=== PATIENT | female | born 1945 | race Caucasian/White ===

== ENCOUNTER 2017-08-28 11:24 | Emergency (ER) | payer MEDICARE, OTHER ==
[2015-05-04 11:38] VITALS: Ht 16.5 cm; Wt 81.3 kg
[~2017-08-28] VITALS: Ht 16.5 cm; Wt 81.3 kg
[~2017-08-28 11:24] MED LIST: ACET-2007 PO; ASPI-757 PO; CALC-1198 PO; CELE-1 PO; CIPR-345 PO; CYCL10TA PO; GLUC-158 PO; HYDR-2952 PO; LEV500 GT; MELO-205 PO; MULT1TAB54 PO; NAPROSYN PO; NIASPAN; OXYC-717 PO; SIMVASTATIN PO
--- NOTE | 2017-08-28 11:26 | ER Report ---
History and Physical Time Seen By MD: 11:25 HPI/ROS CHIEF COMPLAINT: High blood pressure, low pulse HISTORY OF PRESENT ILLNESS: Patient is a 71-year-old female who presents to the emergency department after having to be found hypertensive at her chiropractor to office today and she notes that she's been having right-sided scapular pain that has been undergoing manipulations. During the visit today her blood pressure was taken and was reported to be approximately 100 systolic over 100 diastolic with a pulse rate of around 45. The patient was symptom-free at this time but was referred to the emergency department for further evaluation. Patient remained symptom-free she does admit to having influenza A and recently being treated with Tamiflu approximately 2 weeks ago. For the past 2 weeks her activity level has decreased secondary to the flu she further is on a weight loss program and has lost approximately 40 pounds in 4 months which was intentional. She denies any chest pain or shortness of breath she denies palpitations. She denies nausea vomiting or diarrhea. She denies abdominal pain. REVIEW OF SYSTEMS: Constitutional: No fever, no chills. Eyes: No discharge. ENT: No sore throat. Cardiovascular: No chest pain, no palpitations. Respiratory: No cough, no shortness of breath. Gastrointestinal: No abdominal pain, no vomiting. Genitourinary: No hematuria. Musculoskeletal: No back pain. Right scapular pain Skin: No rashes. Neurological: No headache. Allergies: Coded Allergies: No Known Drug Allergies (Verified , 08/28/17) Home Meds Active Scripts Aspirin (ASPIRIN) 325 Mg Tab, 325 MG PO QDAY, #14 After two weeks of 325mg a day, take a baby aspirin (81mg) a day. Prov:DNAN BUNN MD 05/10/15 Reported Medications Atorvastatin Calcium (LIPITOR) 20 Mg Tablet, 1 TAB PO QDAY, TAB 08/28/17 Discontinued Reported Medications Calcium Carbonate/Vitamin D3 (CALCARB 600 W-VITAMIN D TAB) 1 Each Tablet, PO 05/03/15 Multivitamin (MULTI-VITAMIN DAILY) 1 Each Tablet, 1 EACH PO DAILY 05/03/15 [Simvastatin] No Conflict Check, 20 MG PO HS 11/03/11 Discontinued Scripts Acetaminophen (MAPAP) 325 Mg Tab, 650 MG PO Q6H Y for PAIN, #0 Prov:DANN BUNN MD 9/28/15 Past Medical/Surgical History Past medical history for hypercholesterolemia, past surgical history for knee replacement cystocele in the lumbar laminectomies. Hx Smoking: No Smoking Status: Never Smoker Exposure to Second Hand Smoke?: Yes Hx Alcohol Use: Yes Constitutional Vital Sign - Last 24 Hours 08/28/17 08/28/17 08/28/17 08/28/17 11:24 11:28 11:30 11:34 Temp 98.4 Pulse ??? 56 Resp 20 B/P (MAP) 186/103 (130) 186/103 168/104 (125) Pulse Ox 96 O2 Delivery Room Air 08/28/17 08/28/17 08/28/17 08/28/17 11:39 11:45 11:54 11:59 Pulse 57 58 Resp 22 20 B/P (MAP) 167/86 (113) 180/92 (121) Pulse Ox 95 08/28/17 08/28/17 08/28/17 08/28/17 12:02 12:02 12:09 12:15 Pulse 63 Resp 12 B/P (MAP) 164/90 (114) 180/92 (121) 163/84 (110) Pulse Ox 93 O2 Delivery Room Air 08/28/17 12:30 B/P (MAP) 161/85 (110) Physical Exam General/Constitutional: Patient is awake, alert, nontoxic and in no acute respiratory distress. Head: Normocephalic and atraumatic. Eyes: Conjunctival clear, Pupils are equal and reactive to light. Sclera are clear and anicteric. Ears:External canals are clear. Tympanic membranes are clear with normal landmarks and light reflex. Nares: No rhinorrhea or bleeding. Turbinates are pink and moist. Oropharyngeal: Mucous membranes are moist. There is no pharyngeal erythema or exudate. Neck: Supple, no adenopathy. Cardiovascular: Heart is regular rate and rhythm with occasional ectopy patient also has 2/6 systolic ejection murmur greatest at the aortic site peripheral pulses to the carotids to the dorsalis pedis and the radial are symmetrical and equal Pulmonary: Lungs are clear to auscultation bilaterally. There are no wheezes, rales, or rhonchi. Chest rise is symmetrical Abdomen: Soft, nontender, no guarding or peritoneal signs. Extremities: No gross deformities, No peripheral cyanosis. Able to move all 4 extremities. Neuro: Alert and oriented X3, . Patient has normal gait. Skin: No rashes, skin is warm dry and well perfused. Medical Decision Making Data Points Result Diagram: 08/28/17 1155 08/28/17 1155 Laboratory Hematology Test 08/28/17 11:55 08/28/17 13:00 Red Blood Count 4.74 M/uL (4.17-5.56) Mean Corpuscular Volume 92.7 fL (80.0-96.0) Mean Corpuscular Hemoglobin 31.4 pg (26.0-33.0) Mean Corpuscular Hemoglobin Concent 33.9 g/dL (32.0-36.0) Red Cell Distribution Width 13.9 % (11.5-14.5) Mean Platelet Volume 10.3 fL (7.2-11.1) Neutrophils (%) (Auto) % (39.4-72.5) Lymphocytes (%) (Auto) % (17.6-49.6) Monocytes (%) (Auto) % (4.1-12.4) Eosinophils (%) (Auto) % (0.4-6.7) Basophils (%) (Auto) % (0.3-1.4) Nucleated RBC Relative Count (auto) /100WBC Neutrophils # (Auto) K/uL (2.0-7.4) Lymphocytes # (Auto) K/uL (1.3-3.6) Monocytes # (Auto) K/uL (0.3-1.0) Eosinophils # (Auto) K/uL (0.0-0.5) Basophils # (Auto) K/uL (0.0-0.1) Nucleated RBC Absolute Count (auto) K/uL Neutrophils % (Manual) 78 % (39.4-72.5) Lymphocytes % (Manual) 17 % (17.6-49.6) Monocytes % (Manual) 1 % (4.1-12.4) Eosinophils % (Manual) 0 % (0.4-6.7) Basophils % (Manual) 2 % (0.3-1.4) Metamyelocytes % 2 % Peripheral Blood Smear Yes Y/N Sodium Level 141 mmol/L (137-145) Potassium Level 3.8 mmol/L (3.5-5.0) Chloride Level 103 mmol/L (98-107) Carbon Dioxide Level 26 mmol/L (22-31) Blood Urea Nitrogen 17 mg/dl (7-18) Creatinine 0.70 mg/dl (0.52-1.04) Glomerular Filtration Rate Calc > 60.0 Random Glucose 140 mg/dl (75-110) Calcium Level 9.1 mg/dl (8.4-10.2) Total Bilirubin 0.6 mg/dl (0.2-1.3) Aspartate Amino Transf (AST/SGOT) 32 U/L (0-35) Alanine Aminotransferase (ALT/SGPT) 33 U/L (0-56) Alkaline Phosphatase 88 U/L (0-126) Troponin I < 0.012 ng/ml Total Protein 7.2 gm/dl (6.3-8.2) Albumin 3.9 g/dl (3.5-5.0) Urine Color Straw Urine Clarity Clear Urine pH 6.0 pH (4.8-9.5) Urine Specific [place] 1.023 Urine Protein Negative mg/dL (NEGATIVE) Urine Glucose (UA) Negative mg/dL (NEGATIVE) Urine Ketones Negative mg/dL (NEGATIVE) Urine Blood Negative (NEGATIVE) Urine Nitrite Negative (NEGATIVE) Urine Bilirubin Negative (NEGATIVE) Urine Urobilinogen Negative mg/dL (0.2-1.9) Urine Leukocyte Esterase Small (NEGATIVE) Urine RBC None /HPF (0-2/HPF) Urine WBC 3 /HPF (0-5/HPF) Urine Squamous Epithelial Cells Many /LPF (</=FEW) Urine Bacteria Negative /HPF (NONE-FEW) Urine Mucus None /HPF (NONE-FEW) Chemistry Test 08/28/17 11:55 08/28/17 13:00 White Blood Count 6.8 k/uL (4.5-11.0) Red Blood Count 4.74 M/uL (4.17-5.56) Hemoglobin 14.9 g/dL (12.0-16.0) Hematocrit 43.9 % (34.0-47.0) Mean Corpuscular Volume 92.7 fL (80.0-96.0) Mean Corpuscular Hemoglobin 31.4 pg (26.0-33.0) Mean Corpuscular Hemoglobin Concent 33.9 g/dL (32.0-36.0) Red Cell Distribution Width 13.9 % (11.5-14.5) Platelet Count 182 K/uL (150-450) Mean Platelet Volume 10.3 fL (7.2-11.1) Neutrophils (%) (Auto) % (39.4-72.5) Lymphocytes (%) (Auto) % (17.6-49.6) Monocytes (%) (Auto) % (4.1-12.4) Eosinophils (%) (Auto) % (0.4-6.7) Basophils (%) (Auto) % (0.3-1.4) Nucleated RBC Relative Count (auto) /100WBC Neutrophils # (Auto) K/uL (2.0-7.4) Lymphocytes # (Auto) K/uL (1.3-3.6) Monocytes # (Auto) K/uL (0.3-1.0) Eosinophils # (Auto) K/uL (0.0-0.5) Basophils # (Auto) K/uL (0.0-0.1) Nucleated RBC Absolute Count (auto) K/uL Neutrophils % (Manual) 78 % (39.4-72.5) Lymphocytes % (Manual) 17 % (17.6-49.6) Monocytes % (Manual) 1 % (4.1-12.4) Eosinophils % (Manual) 0 % (0.4-6.7) Basophils % (Manual) 2 % (0.3-1.4) Metamyelocytes % 2 % Peripheral Blood Smear Yes Y/N Glomerular Filtration Rate Calc > 60.0 Calcium Level 9.1 mg/dl (8.4-10.2) Total Bilirubin 0.6 mg/dl (0.2-1.3) Aspartate Amino Transf (AST/SGOT) 32 U/L (0-35) Alanine Aminotransferase (ALT/SGPT) 33 U/L (0-56) Alkaline Phosphatase 88 U/L (0-126) Troponin I < 0.012 ng/ml Total Protein 7.2 gm/dl (6.3-8.2) Albumin 3.9 g/dl (3.5-5.0) Urine Color Straw Urine Clarity Clear Urine pH 6.0 pH (4.8-9.5) Urine Specific [place] 1.023 Urine Protein Negative mg/dL (NEGATIVE) Urine Glucose (UA) Negative mg/dL (NEGATIVE) Urine Ketones Negative mg/dL (NEGATIVE) Urine Blood Negative (NEGATIVE) Urine Nitrite Negative (NEGATIVE) Urine Bilirubin Negative (NEGATIVE) Urine Urobilinogen Negative mg/dL (0.2-1.9) Urine Leukocyte Esterase Small (NEGATIVE) Urine RBC None /HPF (0-2/HPF) Urine WBC 3 /HPF (0-5/HPF) Urine Squamous Epithelial Cells Many /LPF (</=FEW) Urine Bacteria Negative /HPF (NONE-FEW) Urine Mucus None /HPF (NONE-FEW) Urinalysis Test 08/28/17 13:00 Urine Color Straw Urine Clarity Clear Urine pH 6.0 pH (4.8-9.5) Urine Specific [place] 1.023 Urine Protein Negative mg/dL (NEGATIVE) Urine Glucose (UA) Negative mg/dL (NEGATIVE) Urine Ketones Negative mg/dL (NEGATIVE) Urine Blood Negative (NEGATIVE) Urine Nitrite Negative (NEGATIVE) Urine Bilirubin Negative (NEGATIVE) Urine Urobilinogen Negative mg/dL (0.2-1.9) Urine Leukocyte Esterase Small (NEGATIVE) Urine RBC None /HPF (0-2/HPF) Urine WBC 3 /HPF (0-5/HPF) Urine Squamous Epithelial Cells Many /LPF (</=FEW) Urine Bacteria Negative /HPF (NONE-FEW) Urine Mucus None /HPF (NONE-FEW) EKG/Imaging EKG Interpretation EKG shows normal sinus rhythm with occasional couplets of bidirectional PVCs otherwise no significant ST segment changes or abnormalities. Monitor Interpretation: NSR with PVCs Imaging FACILITY: [facility] PATIENT NAME: Blanca Diamond : 1945 MR: [id number] V: [id number] EXAM DATE: ORDERING PHYSICIAN: EDER VINSON TECHNOLOGIST: Location: [facility] [place]: Blanca Diamond : 1945 Visit/Account:[id number] Date of Sevice: 08/28/2017 CTA CHEST ABD W WO CONT HISTORY: Hypertension ADDITIONAL HISTORY: None. TECHNIQUE: CTA chest, abdomen without and with contrast. 3D coronal slab MIPs and 2D reconstructions in the coronal and sagittal planes were also created. One of the following dose optimization techniques was utilized in the performance of this exam: automated exposure control; adjustment of the mA and/ or kv according to patient size; or use of iterative reconstruction technique. Specific details can be referenced in the facility's radiology CT exam operational policy. CONTRAST: 100 cc of Isovue-370 COMPARISON: Chest x-ray 08/28/2017. CT angiogram of the chest 05/01/2015 FINDINGS: Vessels: Thoracic aorta measures 3.7 cm maximally. No evidence of dissection. No evidence of intramural hematoma on precontrast images. Mild calcification of the descending thoracic aorta and aortic root. Visualized abdominal aorta normal caliber. Aortic arch vessels have a normal branching pattern without stenosis. Mesenteric arteries are widely patent. Main bilateral renal arteries widely patent. Visualized bilateral iliofemoral arterial systems are widely patent. Chest: Lower neck: Negative. Heart/pericardium: Negative. Mediastinum/hilum/lymph nodes: Negative. Lungs/pleura: Negative. Bones/soft tissues: Moderate degenerative changes within the lumbar spine. Mild levoscoliosis of the lumbar spine. Other findings: None significant Abdomen and Pelvis: Hepatobiliary: Negative. Spleen: Negative. Adrenals: Negative. Pancreas: Negative. Kidneys/ureters/bladder: Negative. Bowel/peritoneum/mesentery: Negative. Lymph nodes: Negative. Bones/body wall: Negative. Other findings: None significant IMPRESSION: 1. Mild aortic atherosclerosis without aneurysm or dissection. 2. No other acute process identified within the chest and abdomen. Report Dictated By: Chalo Lopez MD at 08/28/2017 1:09 PM Report E-Signed By: Chalo Lopez MD at 08/28/2017 1:16 PM [id number] ED Course/Re-evaluation ED Course 08/28/2017 12:05:59 pm patient found to have a manual blood pressure in the right arm of 164/90 and a manual blood pressure of 180/90 in the left arm. This coupled with the patient's history of 2 weeks of retrosternal or scapular pain raises the suspicion for either aortic valvular insufficiency or aortic dissection. Plan at this time will be a CTA angiogram looking for aortic dissection or dilation of the aortic root. This was explained to the patient questions or concerns at this time. Decision to Disposition Date: Aug 28, 2017 Decision to Disposition Time: 13:28 Depart Departure Latest Vital Signs Vital Signs Date Time Temp Pulse Resp B/P (MAP) Pulse Ox O2 Delivery O2 Flow Rate FiO2 08/28/17 12:30 161/85 (110) 08/28/17 12:09 63 12 93 Room Air 08/28/17 11:30 98.4 Impression: Primary Impression: Hypertension Condition: Improved Disposition: HOME OR SELF-CARE Referrals: RIVAS CULVER DO (PCP) 1 Week For repeat check of blood pressure. Departure Forms: ER Transition Record, Medications Reconciliation, Patient Portal Information Patient Instructions: Hypertension (ED) Additional Instructions: Continue all your outpatient medications as prescribed. Scheduling follow-up appointment with Dr. Culver for repeat check of blood pressure. Problem Qualifiers Primary Impression: Hypertension Hypertension type: essential hypertension Qualified Codes: I10 - Essential ( primary) hypertension EDER VINSON MD Aug 28, 2017 11:26
[2017-08-28] MEDS ORDERED: ATOR20TA22 PO (11:30)
[2017-08-28 12:06] LABS: PLATELET COUNT, AUTOMATED 182 K/uL (150-450)
[2017-08-28] MEDS ORDERED: IOPAMIDOL 76% 100 ML INFUS BTL 100 ML ONE (12:27)
[2017-08-28] MEDS ORDERED: NS 0.9% 50 ML VIAL 100 ML ONE (12:27)
--- NOTE | 2017-08-28 13:19 | RADIOLOGY IMAGING REPORT ---
FACILITY: [facility] - [place] PATIENT NAME: Blanac Diamond : 1945 MR: [id number] V: [id number] EXAM DATE: ORDERING PHYSICIAN: EDER VINSON TECHNOLOGIST: [place] [facility] [place] Patient: Blanca Diamond : 1945 Visit/Account:[id number] Date of Sevice: 08/28/2017 CTA CHEST ABD W WO CONT HISTORY: Hypertension ADDITIONAL HISTORY: None. TECHNIQUE: CTA chest, abdomen without and with contrast. 3D coronal slab MIPs and 2D reconstruction s in the coronal and sagittal planes were also created. One of the following dose optimization techni ques was utilized in the performance of this exam: automated exposure control; adjustment of the mA a nd/or kv according to patient size; or use of iterative reconstruction technique. Specific details ca n be referenced in the facility's radiology CT exam operational policy. CONTRAST: 100 cc of Isovue-370 COMPARISON: Chest x-ray 08/28/2017. CT angiogram of the chest 05/01/2015 FINDINGS: Vessels: Thoracic aorta measures 3.7 cm maximally. No evidence of dissection. No evidence of intramu ral hematoma on precontrast images. Mild calcification of the descending thoracic aorta and aortic ro ot. Visualized abdominal aorta normal caliber. Aortic arch vessels have a normal branching pattern wi thout stenosis. Mesenteric arteries are widely patent. Main bilateral renal arteries widely patent. V isualized bilateral iliofemoral arterial systems are widely patent. Chest: Lower neck: Negative. Heart/pericardium: Negative. Mediastinum/hilum/lymph nodes: Negative. Lungs/pleura: Negative. Bones/soft tissues: Moderate degenerative changes within the lumbar spine. Mild levoscoliosis of the lumbar spine. Other findings: None significant Abdomen and Pelvis: Hepatobiliary: Negative. Spleen: Negative. Adrenals: Negative. Pancreas: Negative. Kidneys/ureters/bladder: Negative. Bowel/peritoneum/mesentery: Negative. Lymph nodes: Negative. Bones/body wall: Negative. Other findings: None significant IMPRESSION: 1. Mild aortic atherosclerosis without aneurysm or dissection. 2. No other acute process identified within the chest and abdomen. Report Dictated By: Chalo Lopez MD at 08/28/2017 1:09 PM Report E-Signed By: Chalo Lopez MD at 08/28/2017 1:16 PM [id number]
[2017-08-28 13:40] VITALS: BP 172/90
--- NOTE | 2017-08-28 16:18 | EKG ---
FACILITY: [facility] PATIENT NAME: KALEB PATE : [id number] MR: [id number] V: [id number] EXAM DATE: ORDERING PHYSICIAN: EDER VINSON TECHNOLOGIST: BENY Bernal Reason : HTN Blood Pressure : / mmHG Vent. Rate : 073 BPM Atrial Rate : 054 BPM P-R Int : 142 ms QRS Dur : 074 ms QT Int : 436 ms P-R-T Axes : 050 -30 030 degrees QTc Int : 480 ms Sinus bradycardia with occasional and consecutive premature ventricular complexes Possible Left atrial enlargement Left axis deviation R progression consistent with old ant/sep AL vs lead placement When compared with ECG of 01-MAY-2015 00:20, premature ventricular complexes are now present Confirmed by DANN BUNN ([id number]) on 08/28/2017 5:09:50 PM Referred By: KAREL Confirmed By:DANN BUNN
== END 2017-08-28 13:43 | disposition home or self-care (01) ==
LOC: ER 11:30
DX: I10 Essential (primary) hypertension (principal)
CPT/HCPCS: 71275; 74175; 81001; 84484; 85025; 93005; 99284; J7050; Q9967; 82040; 82247; 82310; 82374; 82435; 82565; 82947; 84075; 84132; 84155; 84295; 84450; 84460; 84520

== ENCOUNTER → 2017-09-17 | Outpatient (CLI) | payer MEDICARE, OTHER ==
[2015-05-04 11:38] VITALS: BMI 30.0
[~2017-09-17] MED LIST changes: +ATOR20TA22 PO
--- NOTE | 2017-09-18 20:04 | RT STRESS TEST REPORT ---
FACILITY: [facility] - [place] PATIENT NAME: KALEB PATE : [id number] MR: [id number] V: [id number] EXAM DATE: ORDERING PHYSICIAN: ALESSANDRO MANE TECHNOLOGIST: Kt Acquisition Time: 2017-09-17 07:01:56 Total Exercise Time: 00:05:00 Test Indications: Chest Discomfort Medications: BLOOD PRESSURE ATORVASTATIN ASPIRIN Protocol: ANTONIETTA/CHANDAN Max HR: 162 BPM 109% of Pred: 148 BPM Max BP: 162/096 mmHG Max Work Load: 7.0 METS see echo report Confirmed by CHARBEL MANE ([id number]) on 09/18/2017 8:03:37 PM Referred By: Guerda Culver Overread By: CHARBEL MANE
== END ==
LOC: RESP 01:10
PROVIDERS: ATTEND Family Medicine
DX: R07.9 Chest pain, unspecified (principal); I10 Essential (primary) hypertension
CPT/HCPCS: 93017

== ENCOUNTER 2017-10-30 09:15 | Outpatient (RCR) | payer MEDICARE, OTHER ==
[2015-05-04 11:38] VITALS: BMI 30.0
--- NOTE | 2017-09-12 10:43 | PT INITIAL EVALUATION ---
MEDICAL DIAGNOSIS: Cervical Spine DDD, Nerve pain/irritation into R arm/scapula TREATMENT DIAGNOSIS: Radiular thoracic pain, UE weakness DATE OF ONSET: 08/15/17 SUBJECTIVE: Blanca is a 71 year-old female presenting to physical therapy following recent onset of R arm and scapular pain and weakness. Pt reports that the pain has been growing progressively over the last 4 weeks and that she was going to a chiropractor and massage therapist and has had little change. Pt reported that recently her doctor started her on systemic steroids which has significantly decreased the pain. Pt reports that pain is currently between the T5 reaching to mid scapula rated at 3/10. At worst pain was rated at 10/10 with radiating pain down into the 4th and 5th digits of the R arm. Pain is reduced with ice and is rated at it's best at 1/10. REHAB PROBLEM LIST: Increased Pain Decreased ROM Decreased Strength Decreased Endurance Decreased Function Decreased ADL's Decreased Mobility PREVIOUS MEDICAL HISTORY: See EMR OBJECTIVE: Posture: Increased thoracic kyphosis with forward head shift at C7. ROM: Cervical ROM: all motions full without pain. Thoracic ROM: all motions full without pain except ext with minimal restrictions. Strength: UE MMT: Shoulder: flexion: R 4/5, L 5/5, ext: B 5/5, abd: R 4/5, L 4+/ 5, ER: R 4/5, L 5/5, IR: R 4/5, L 4+/5. Elbow: flexion: R 3+/5, L 5/5, ext: R 4+/5, L 5/5. Wrist: Flexion: R 4+/5, L 5/5, ext: R 3+/5, L 5/5. Enterprise Architect Strength: R 28#, L 45# (pt is right hand dominant) Sensation: Sensation decreased to light touch on digits 4 & 5 in on the R hand with reports of numbness and tingling sensation. Mobility: Karina Spinal Screen: Cervical: flexion: slight increase in intensity in the scapula, but no change with further repetition. all other motions no change. Thoracic: Flexion: increased scapular pain, ext: slight decrease in scapular pain. Other Objective Findings: Neck Pain and Disability Index: 9/50 ASSESSMENT: Pt shows signs and symptoms with neural impingement and inflammation with radicular symptoms into the R UE. Physical therapy is indicated to centralize and decrease pain to correct the above listed strength and mobility deficits listed above for improved function with ADL's. Short Term Goals In 3 weeks pt will centralize pain to the spine only for improved function with ADL's. In 6 weeks pt will increase R UE strength to > 4/5 in all general motions for improved functional use with ADL's. In 6 weeks pt will increase R UE chief meteorologist strength to >35# for improved function with ADL's. In 6 weeks pt will decrease pain to 1/10 or less with ADL's for improved function. In 6 weeks pt will decrease Neck Pain and Disability Index to 5/50 or less indicating improved function with ADL's. Patient's Goals Decrease pain, improve R UE strength. PLAN: Patient to be seen for Manual Therapy/STM/MET Strengthening/condition Ice/Heat Range of Motion Spinal Stabilization Ultrasound Stretching Iontophoresis Neuromuscular Re-ed Closed Chain Program Electrical Stim Posture/Body mechanics Biofeedback Home Exercise Program Mech./Manual Traction Therapeutic Activities 3x/Week for 6 Weeks If you have any questions, comments, or concerns about this report or plan, please contact me at . Thank you, Pam Dodd, PT, DPT, CLT MTDD
--- NOTE | 2017-10-30 17:06 | PT PLAN OF CARE ---
Physician: Jimmy Carrizales MD Patient is being seen: 2-3x/Week Therapist: Pam Dodd, PT, DPT, CLT Medical Diagnosis: Cervical Spine DDD, Nerve pain/irritation into R arm/scapula Treatment Diagnosis: Radiular thoracic pain, UE weakness Date of Onset: 08/15/17 Date of Initial Evaluation: 09/11/17 Date patient was last seen: 10/30/17 Number of treatments: 10 Number of cancellations/No shows: 1 INTERVENTIONS: Manual Therapy/STM/MET Strengthening/condition Ice/Heat Range of Motion Spinal Stabilization Ultrasound Stretching Iontophoresis Neuromuscular Re-ed Closed Chain Program Electrical Stim Posture/Body mechanics Biofeedback Home Exercise Program Mech./Manual Traction Therapeutic Activities GOALS: In 3 weeks pt will centralize pain to the spine only for improved function with ADL's. MET In 6 weeks pt will increase R UE strength to > 4/5 in all general motions for improved functional use with ADL's. MET In 6 weeks pt will increase R UE meter maker strength to >35# for improved function with ADL's. MET In 6 weeks pt will decrease pain to 1/10 or less with ADL's for improved function. MET PATIENT'S GOAL: Decrease pain, improve R UE strength. Status of Patient's Goals: 4/4 MET Patient Compliance: Excellent Prognosis: Good Reasons for continuing therapy: Blanca is to discharge from physical therapy at this time secondary to completion of 4/4 functional goals. At this time pt reports no pain at rest and has had equal return in strength in B UE. Pt is able to perform all functional ADL's and recreational activities without increased pain. Pt does have a tender nodule which has been unchanged on her R lateral ribs below the axilla. This nodule is only tender with palpation and has no response to musculoskeletal screening. Pt PCP notified of it's presence upon discharge of treatment and pt is to follow up with PCP immediately following PT visit. Posture: Unremarkable ROM: Cervical ROM: all motions full without pain. Thoracic ROM: all motions full without pain. Strength: UE MMT: Shoulder: flexion: B 5/5, ext: B 5/5, abd: B 4+/5, ER: B 5/5 , IR: R 5/5, L 4+/5. Elbow: flexion: B 5/5, ext: B 5/5. Wrist: Flexion: B 5/5, ext: B 12/15. Cte Teacher Strength: R 45#, L 45# (pt is right hand dominant) If you have any questions or concerns, please feel free to contact me at . Thank you, Pam Dodd, PT, DPT, CLT MTDD
== END 2017-10-30 18:00 | disposition home or self-care (01) ==
LOC: PT 09:15
PROVIDERS: ATTEND Orthopaedic Surgery
DX: M79.601 Pain in right arm (principal); M51.36 Other intervertebral disc degeneration, lumbar region; M54.14 Radiculopathy, thoracic region; M62.81 Muscle weakness (generalized)
CPT/HCPCS: 93325; 93350; 97161

== ENCOUNTER → 2017-10-31 | Outpatient (CLI) | payer MEDICARE, OTHER ==
[2015-05-04 11:38] VITALS: BMI 30.0
--- NOTE | 2017-10-31 12:42 | RADIOLOGY IMAGING REPORT ---
FACILITY: [facility] - [place] PATIENT NAME: Blanca Diamond : 1945 MR: [id number] V: [id number] EXAM DATE: ORDERING PHYSICIAN: RIVAS COHEN TECHNOLOGIST: Location: [facility] Patient: Blanca Diamond : 1945 Visit/Account:[id number] Date of Sevice: 10/31/2017 RIBS RIGHT INDICATION: Right rib pain after fall COMPARISON: None available FINDINGS: Heart size within normal limits. There is no focal infiltrate or lobar consolidation. There is no pneumothorax or pleural effusion. Right rib series with marker in place shows no obvious fracture. IMPRESSION: 1. Negative chest and right rib series Report Dictated By: Jer Lennon at 10/31/2017 12:31 PM Report E-Signed By: Jer Lennon at 10/31/2017 12:38 PM [id number]
== END ==
LOC: RAD 11:20
PROVIDERS: ATTEND Family Medicine
DX: M89.8X8 Other specified disorders of bone, other site (principal)
CPT/HCPCS: 71100

== ENCOUNTER → 2018-01-29 | Outpatient (CLI) | payer MEDICARE, OTHER ==
[2015-05-04 11:38] VITALS: BMI 30.0
--- NOTE | 2018-01-29 15:09 | RADIOLOGY IMAGING REPORT ---
FACILITY: [facility] PATIENT NAME: KALEB PATE : [id number] MR: [id number] V: [id number] EXAM DATE: [id number] ORDERING PHYSICIAN: LAURA ZUNIGA TECHNOLOGIST: Mallory Stanton PROCEDURE:BILATERAL DIGITAL SCREENING MAMMOGRAM WITH CAD ASSISTED INTERPRETATION & 3D TOMOSYNTHESIS COMPARISON:Prior mammograms 12/20/16, 12/12/16, 12/09/15, 08/12/14, 07/22/14, 07/14/13. INDICATIONS:SCREENING FINDINGS: A small amount of fibroglandular tissue is seen throughout the breasts. The parenchymal pattern has remained stable allowing for difference in mammographic technique & patient positioning. There is no evidence of malignant appearing mass, malignant appearing calcifications or other secondary sign of malignancy in either breast. DIAGNOSTIC CATEGORY 1--NEGATIVE. RECOMMENDATIONS: ROUTINE MAMMOGRAM AND CLINICAL EVALUATION. IMPRESSION: BIRADS 1: Negative. No significant abnormality is seen. Dictated by: Estefany Posada M.D. on 01/29/2018 at 10:20 Transcribed by: ZURI on 01/29/2018 at 10:40 Approved by: Estefany Posada M.D. on 01/29/2018 at 15:07 [facility]
== END ==
LOC: MAMO 07:06
PROVIDERS: ATTEND Obstetrics & Gynecology
DX: Z12.31 Encounter for screening mammogram for malignant neoplasm of breast (principal)
CPT/HCPCS: 77063; 77067

== ENCOUNTER 2018-10-02 14:30 | Outpatient (RCR) | payer MEDICARE, OTHER ==
[2015-05-04 11:38] VITALS: BMI 30.0
--- NOTE | 2018-08-16 16:34 | PT INITIAL EVALUATION ---
MEDICAL DIAGNOSIS: Left Hip Pain, Greater Trochanteric Bruise, Gluteal Weakness TREATMENT DIAGNOSIS: Left Hip Pain, Ischiogluteal Bursitis, Hip Weakness DATE OF ONSET: 08/01/18 SUBJECTIVE: Blanca is a 72 year old female presenting to physical therapy following recent fall on her L side resulting in L lateral and posterior hip pain as well as slight pain in her shoulder, and knee. Pt reports that she was going down the stair 2 weeks prior and fell on her L side with her shoulder hitting the wall. Initially she had no problems, but over time bruising and pain developed on the L side. Pt has a history of L knee surgery as well as L hip replacement 3 years prior. Following imaging, pt reports a small hairline fracture near hip hardware, though she doesn't remember where. Fracture is to be monitored by MD for healing. Pt reports that her pain is worse with walking, prolonged sitting, and prolonged standing. She is managing her pain with ice. Pain is currently 0/10 at rest but reaches up to 7-8/10 at worst. Pain is typically on the lateral L hip and a little in the buttock region on that side occasionally with ache on the other side. REHAB PROBLEM LIST: Increased Pain Decreased Strength Impaired Transfers Decreased Endurance Decreased Function Decreased ADL's Decreased Mobility Decreased Gait PREVIOUS MEDICAL HISTORY: See EMR OBJECTIVE: Pt presents with swelling and bruising evident on the L lateral hip. ROM: B hip ROM full and equal Strength: LE MMT (R,L): Hip: Flexion: 3+/5, 3/5 with lateral hip pain, ext: 4/5, 4-/5, abd: 4/5, 3+/5, add: 4+/5, 4+/5 with posterior/lateral hip pain. Knee: flexion: 4/5, 3+/5, ext: 4+/5, 4/5, Ankle: DF: 5/5, 5/5, PF: 4+/5, 4+/5 Palpation: Pt is tender to palpation along the iliac crest and ischiogluteal bursae with palpable swelling. Special Tests: Rashaun's test (-)B, Thigh thrust (-), SIJ testing (-), ELHAM/FADIR (-) Mobility: Pt has B knee adduction with transitions from seated<>standing. Lateral hip collapse is evident B with SLS. Other Objective Findings: FOTO Hip: 24/50 ASSESSMENT: Blanca presents with signs and symptoms consistent with ischiogluteal bursitis and generalized weakness of B hips. Physical therapy is indicated for this patient to address the above listed deficits to improve pt function with ADL's. Short Term Goals In 3 weeks pt will decrease pain at worst to <5/10 for improved function with ADL's. In 6 weeks pt will increase hip strength to 4/5 or greater in all directions for improved hip stability and function with ADL's. In 6 weeks pt will increase FOTO Hip Score to 41/50 or greater for improved function with ADL's. Patient's Goals Decrease hip pain and improve function PLAN: Patient to be seen for Manual Therapy/STM/MET Strengthening/condition Ice/Heat Range of Motion Spinal Stabilization Ultrasound Stretching Iontophoresis Neuromuscular Re-ed Closed Chain Program Electrical Stim Posture/Body mechanics Gait Trg/Balance Trg Biofeedback Home Exercise Program Mech./Manual Traction Therapeutic Activities Pelvic Floor 3x/Week for 6 Weeks If you have any questions, comments, or concerns about this report or plan, please contact me at .. Thank you, Pam Dodd, PT, DPT, CLT MTDD
--- NOTE | 2018-09-13 12:59 | PT PLAN OF CARE ---
Physician: Kingston Contreras MD Patient is being seen: 2x/Week Therapist: Pam Dodd, PT, DPT, CLT Medical Diagnosis: Left Hip Pain, Greater Trochanteric Bruise, Gluteal Weakness Treatment Diagnosis: Left Hip Pain, Ischiogluteal Bursitis, Hip Weakness Date of Onset: 08/01/18 Date of Initial Evaluation: 08/16/18 Date patient was last seen: 09/13/18 Number of treatments: 11 Number of cancellations/No shows: 0 INTERVENTIONS: Manual Therapy/STM/MET Strengthening/condition Ice/Heat Range of Motion Spinal Stabilization Ultrasound Stretching Iontophoresis Neuromuscular Re-ed Closed Chain Program Electrical Stim Posture/Body mechanics Gait Trg/Balance Trg Biofeedback Home Exercise Program Mech./Manual Traction Therapeutic Activities Pelvic Floor GOALS: In 3 weeks pt will decrease pain at worst to <5/10 for improved function with ADL's. MET In 6 weeks pt will increase hip strength to 4/5 or greater in all directions for improved hip stability and function with ADL's. In Progress In 6 weeks pt will increase FOTO Hip Score to 41/50 or greater for improved function with ADL's. In Progress PATIENT'S GOAL: Decrease hip pain and improve function Status of Patient's Goals: 1/3 MET, 2/3 In Progress Patient Compliance: Good Prognosis: Good Reasons for continuing therapy: Blanca shows excellent progress towards decreased edema and improved function in treatment of L gluteal femoral bursitis. Edema is no longer palpable and pt reports only deep ache with side-lying and end range adduction with resistance. Following onset on lumbar dysfunction with a fall Blanca shows full abolishment of neural radicular symptoms with repeated lumbar extension. Other set backs with recent fall include L hamstring strain which also shows significant improvement. Further PT to continue with strengthening to correct lingering hip imbalance and instability with walking and stair ambulation. Additionally R LE strengthening is indicated to decrease L LE loading to decrease risk of re-injury. ROM: B hip ROM full and equal Strength: LE MMT (R,L): Hip: Flexion: 4-/5, 4-/5 with lateral hip pain, ext: 4/5, 4/5, abd: 4/5, 4-/5, add: 4+/5, 4+/5 with posterior/lateral hip pain. Knee: flexion: 4/5, 4/5, ext: 4/5, 4+/5, Ankle: DF: 5/5, 5/5, PF: 4+/5, 4+/5 Special Tests: Rashaun's test (-)B, Thigh thrust (-), SIJ testing (-), ELHAM/FADIR (-) Mobility: Pt has L knee adduction with transitions from seated<>standing. Medial hip collapse is evident R with SLS. Other Objective Findings: FOTO Hip: If you have any questions, comments, or concerns about this report or plan, please contact me at .. Thank you, Pam Dodd, PT, DPT, CLT MTDD
== END 2018-10-02 18:00 | disposition home or self-care (01) ==
LOC: PT 14:30
PROVIDERS: ATTEND Orthopaedic Surgery
DX: M25.552 Pain in left hip (principal); M62.81 Muscle weakness (generalized); M70.72 Other bursitis of hip, left hip
CPT/HCPCS: 97161

== ENCOUNTER 2018-12-20 11:15 | Outpatient (RCR) | payer MEDICARE, OTHER ==
[2015-05-04 11:38] VITALS: BMI 30.0
--- NOTE | 2018-11-01 10:03 | PT INITIAL EVALUATION ---
MEDICAL DIAGNOSIS: Left Hip Pain, Gluteal Weakness TREATMENT DIAGNOSIS: Left Piriformis Syndrome, Left Hip Pain DATE OF ONSET: 11/01/18 SUBJECTIVE: Blanca is a 73 year old female returning to physical therapy following return from vacation with lingering posterior L hip pain. Pt reports pain is increased with prolonged sitting and generally goes away with walking. Pain was doing better at the end of last PT session earlier this year but on her vacation started getting worse. Pt was previously treated for L hip bursitis and reports she wasn't very good at continuing her exercises on her vacation. However, the lateral hip is no longer hurting it is just the L buttocks. REHAB PROBLEM LIST: Increased Pain Decreased ROM Impaired Transfers Decreased Function Decreased ADL's Decreased Mobility PREVIOUS MEDICAL HISTORY: See EMR OCCUPATION: Retired OBJECTIVE: ROM: Lumbar ROM: WFL without pain Piriformis Stretch: reproduced pain in L buttocks Special Tests: Repeated Lumbar Motion: flexion: increased pain in the buttocks on the L and slightly down the leg, ext: pain centralized to the superior medial L buttocks. Strength: LE MMT (R,L): Hip: Flexion: 4-/5, 4-/5 with lateral hip pain, ext: 4/5, 4/5, abd: 4/5, 4-/5, add: 4+/5, 4+/5 with posterior/lateral hip pain. Knee: flexion: 4/5, 4/5, ext: 4/5, 4+/5, Ankle: DF: 5/5, 5/5, PF: 4+/5, 4+/5 Other Objective Findings: FOTO Hip: 29/50 ASSESSMENT: Pt presents with signs and symptoms consistent with L piriformis syndrome with possible lumbar dysfunction. Physical therapy is indicated to address the above listed deficits to improve function with ADL's. Short Term Goals In 3 weeks pt will have no posterior hip pain with ADL's or sitting. In 3 weeks pt will be compliant with HEP for maintenance of function with ADL's. In 4 weeks pt will improve FOTO hip to 35/50 for improved function with ADL's. Patient's Goals Decrease L posterior hip pain. PLAN: Patient to be seen for Manual Therapy/STM/MET Strengthening/condition Ice/Heat Range of Motion Spinal Stabilization Ultrasound Stretching Iontophoresis Neuromuscular Re-ed Closed Chain Program Electrical Stim Posture/Body mechanics Gait Trg/Balance Trg Home Exercise Program [facility]./Manual Traction Therapeutic Activities Pelvic Floor 2x/Week for 4 Weeks If you have any questions, comments, or concerns about this report or plan, please contact me at . Thank you, Pam Dodd, PT, DPT, CLT MTDD
--- NOTE | 2018-12-12 07:44 | PT PLAN OF CARE ---
Physician: Kingston Contreras MD Patient is being seen: 2-3x/Week Therapist: Pam Dodd, PT, DPT, CLT Medical Diagnosis: Left Hip Pain, Gluteal Weakness Treatment Diagnosis: Left Piriformis Syndrome, Left Hip Pain, Gluteal-femoral bursitis Date of Onset: 11/01/18 Date of Initial Evaluation: 10/31/18 Date patient was last seen: 12/11/18 Number of treatments: 10 Number of cancellations/No shows: 0 INTERVENTIONS: Manual Therapy/STM/MET Strengthening/condition Ice/Heat Range of Motion Spinal Stabilization Ultrasound Stretching Iontophoresis Neuromuscular Re-ed Closed Chain Program Electrical Stim Posture/Body mechanics Gait Trg/Balance Trg Home Exercise Program Mech./Manual Traction Therapeutic Activities Pelvic Floor GOALS: In 3 weeks pt will have no posterior hip pain with ADL's or sitting. In 3 weeks pt will be compliant with HEP for maintenance of function with ADL's. MET In 4 weeks pt will improve FOTO hip to 35/50 for improved function with ADL's. MET PATIENT'S GOAL: Decrease L posterior hip pain. Status of Patient's Goals: 2/3 MET Patient Compliance: Excellent Prognosis: Good Reasons for continuing therapy: Bursa continues to decrease with remaining slight pain with palpation but no longer a lump. Pt shows improved strength overall with lingering deficits in L knee flexion, hip abduction and extension all with slight tightness with muscles crossing the bursa. Further PT to continue with independent exercise program progression with maintenance of hip stability and function. Pt to be evaluated for discharge in next couple sessions. ROM: Lumbar ROM: WFL without pain Strength: LE MMT (R,L): Hip: Flexion: 4/5, 4/5, ext: 4+/5, 4+/5, abd: 5/5, 4+/5, add: 5/5, 5/5. Knee: flexion: 4/5, 4/5, ext: 4+/5, 4+/5, Ankle: DF: 5/5, 5/5, PF: 5/5, 5/5 Other Objective Findings: FOTO Hip: 37/50 If you have any questions, comments, or concerns about this report or plan, please contact me at . Thank you, Pam Dodd, PT, DPT, CLT MTDD
--- NOTE | 2018-12-20 18:46 | PT PLAN OF CARE ---
Physician: Kingston Contreras MD Patient is being seen: 2x/Week Therapist: Pam Dodd, PT, DPT, CLT Medical Diagnosis: Left Hip Pain, Gluteal Weakness Treatment Diagnosis: Left Piriformis Syndrome, Left Hip Pain Date of Onset: 11/01/18 Date of Initial Evaluation: 10/31/18 Date patient was last seen: 12/20/18 Number of treatments: 12 Number of cancellations/No shows: 0 INTERVENTIONS: Manual Therapy/STM/MET Strengthening/condition Ice/Heat Range of Motion Spinal Stabilization Ultrasound Stretching Iontophoresis Neuromuscular Re-ed Closed Chain Program Electrical Stim Posture/Body mechanics Gait Trg/Balance Trg Home Exercise Program Mech./Manual Traction Therapeutic Activities Pelvic Floor GOALS: In 3 weeks pt will have no posterior hip pain with ADL's or sitting. MET In 3 weeks pt will be compliant with HEP for maintenance of function with ADL's. MET In 4 weeks pt will improve FOTO hip to 35/50 for improved function with ADL's. MET PATIENT'S GOAL: Decrease L posterior hip pain. Status of Patient's Goals: 3/3 MET Patient Compliance: Excellent Prognosis: Good Reasons for discharge from therapy: Blanca is to discharge from physical therapy at this time secondary to completion of 3/3 functional goals. At the time of discharge pt has complete resolution of bursitis symptoms with no longer lingering pain or weakness on the L side. At this time pt has fully resumed ADL's and recreational activities. Pt has remaining muscular imbalances predisposing her to re-injury which pt will continue to work on with HEP and recreational exercise. ROM: Lumbar ROM: WFL without pain Strength: LE MMT (R,L): Hip: Flexion: 4/5, 4/5, ext: 4+/5, 4+/5, abd: 5/5, 4+/5, add: 5/5, 5/5. Knee: flexion: 4/5, 4/5, ext: 4+/5, 4+/5, Ankle: DF: 5/5, 5/5, PF: 5/5, 5/5 Other Objective Findings: FOTO Hip: 37/50 If you have any questions, comments, or concerns about this report or plan, please contact me at . Thank you, Pam Dodd, PT, DPT, CLT MTDD
== END 2018-12-20 18:00 | disposition home or self-care (01) ==
LOC: PT 11:15
PROVIDERS: ATTEND Orthopaedic Surgery
DX: M25.552 Pain in left hip (principal); M62.81 Muscle weakness (generalized)
CPT/HCPCS: 97161

== ENCOUNTER 2019-02-27 08:15 | Outpatient (RCR) | payer MEDICARE, OTHER ==
[2015-05-04 11:38] VITALS: BMI 30.0
--- NOTE | 2019-02-06 07:18 | PT INITIAL EVALUATION ---
MEDICAL DIAGNOSIS: Right Shoulder Pain TREATMENT DIAGNOSIS: Right Shoulder Pain, Neural Impingement DATE OF ONSET: 01/30/19 SUBJECTIVE: Blanca is a 73 year old female presenting to physical therapy following onset of R shoulder and neck pain starting last (01/30/19). Pt reports that she was gardening and following she gradually developed pain going down her R shoulder blade, back and shoulder which continued throughout the next couple days down into the R elbow and lateral digits. Pain is currently rated at 5/10 and only extends to the the armpit. Pain at worst however was 10/10 to the fingers. At this time pt has numbness in the lateral digits but no pain. Pt reports that pain increases throughout the day but improves with laying down at night with no pain when first waking up. REHAB PROBLEM LIST: Increased Pain Decreased ROM Decreased Strength Decreased Function Decreased ADL's Decreased Mobility PREVIOUS MEDICAL HISTORY: See EMR OCCUPATION: Retired OBJECTIVE: Posture: Increased kyphotic thoracic posture with forward head. ROM: Cervical ROM: flexion: full with pain in T spine, ext: full no pain, R SB: full with pn in T spine and hand, L SB: no pain, R rot: full with slight pain in T spine, L rot: no pain and full. Thoracic ROM: flexion: full with pain in T spine and shoulder, ext: moderate restrictions without pain, B rotation: no pain Palpation: Pt is ttp from T3-5 extending out to R axilla. Sensation: Pt reports numbness and tingling in her 4th and 5th digits on the R UE Special Tests: Repeated Thoracic Motion: flexion: increased pain in hand and tingling pain extends to mid upper arm, ext: decreased tingling in hand pain increases along T-spine and decreases but remains present in armpit. ASSESSMENT: Blanca shows signs and symptoms consistent with thoracic dysfunction with radicular symptoms down the R UE as outlined by the above listed deficits. Physical therapy is indicated to improve pt function with ADL's and decrease pain. Short Term Goals In 2 weeks pt will centralize pain to the spine only for improved function with ADL's without symptoms in the R hand or arm. In 4 weeks pt will improve cervical and thoracic ROM to full without pain for improved function with ADL's. In 4 weeks pt will be independent with [facility] for maintenance of condition. Patient's Goals Decrease R arm and back pain. PLAN: Patient to be seen for Manual Therapy/STM/MET Strengthening/condition Ice/Heat Range of Motion Spinal Stabilization Ultrasound Stretching Iontophoresis Neuromuscular Re-ed Closed Chain Program Electrical Stim Posture/Body mechanics Biofeedback Home Exercise Program Mech./Manual Traction Therapeutic Activities 3x/Week for 6 Weeks If you have any questions, please contact me at . Thank you, Pam Dodd, PT, DPT, CLT Referring Provider Signature: Date: MTDD
--- NOTE | 2019-03-20 11:16 | PT PLAN OF CARE ---
Physician: Guerda Culver DO Patient is being seen: 2x/Week Therapist: Pam Dodd, PT, DPT, CLT Medical Diagnosis: Right Shoulder Pain Treatment Diagnosis: Right Shoulder Pain, Neural Impingement Date of Onset: 01/30/19 Date of Initial Evaluation: 02/05/19 Date patient was last seen: 02/27/19 Number of treatments: 8 Number of cancellations/No shows: 0 INTERVENTIONS: Manual Therapy/STM/MET Strengthening/condition Ice/Heat Range of Motion Spinal Stabilization Ultrasound Stretching Iontophoresis Neuromuscular Re-ed Closed Chain Program Electrical Stim Posture/Body mechanics Biofeedback Home Exercise Program Mech./Manual Traction Therapeutic Activities GOALS: In 2 weeks pt will centralize pain to the spine only for improved function with ADL's without symptoms in the R hand or arm. MET In 4 weeks pt will improve cervical and thoracic ROM to full without pain for improved function with ADL's. MET In 4 weeks pt will be independent with HEP for maintenance of condition. MET PATIENT'S GOAL: Decrease R arm and back pain. Status of Patient's Goals: 3/3 MET Patient Compliance: Excellent Prognosis: Good Reasons for discharge from therapy: Blanca is to discharge from physical therapy at this time secondary to completion of 3/3 functional goals. At the time of discharge pt showed good progress with HEP and reported being pain free. Pt had full return to gardening and ADL's without pain in the shoulder, neck or thoracic spine. Upon discharge pt is to continue with HEP decreasing each pain- free day until it is no longer needed. ROM: Cervical ROM: full in all directions without pain Thoracic ROM: full in all directions withotu pain If you have any questions, please feel free to contact me at [phone]. Thank you, Pam Dodd, PT, DPT, CLT MTDD
== END 2019-02-27 18:00 | disposition home or self-care (01) ==
LOC: PT 08:15
PROVIDERS: ATTEND Family Medicine
DX: M25.511 Pain in right shoulder (principal)
CPT/HCPCS: 97161